=== PATIENT | female | born 1985 | race Caucasian/White ===

== ENCOUNTER 2018-08-13 18:28 | Emergency (ER) | payer MEDICAID ==
--- NOTE | 2018-08-13 18:58 | ER Document Report ---
ED Medical Screen (RME) - General Chief Complaint: Cold Symptoms Stated Complaint: COUGH,HEADACHE Time Seen by Provider: 08/13/18 18:55 Mode of Arrival: Ambulatory Information source: Patient TRAVEL OUTSIDE OF THE [place] IN LAST 30 DAYS: No - HPI Patient complains to provider of: cough, CP with cough Onset: Other - pt with cough productive of green sputum, LIM, and fever for the past few days. - Related Data Allergies/Adverse Reactions: quetiapine [From Seroquel] Allergy (Verified 08/13/18 18:37) Anaphylaxis Physical Exam - Vital signs Vitals: Temp Pulse Resp BP Pulse Ox 100.8 F H 107 H 24 H 141/85 H 95 08/13/18 18:42 08/13/18 18:42 08/13/18 18:42 08/13/18 18:42 08/13/18 18:42 Course - Vital Signs Vital signs: Temp Pulse Resp BP Pulse Ox 100.8 F H 107 H 24 H 141/85 H 95 08/13/18 18:42 08/13/18 18:42 08/13/18 18:42 08/13/18 18:42 08/13/18 18:42
[2018-08-13 19:15] LABS: ABSOLUTE BASOPHILS # (AUTO) 0.1 10^3/uL (0.0-0.2); ABSOLUTE EOSINOPHILS # (AUTO) 0.1 10^3/uL (0.0-0.6); ABSOLUTE LYMPHOCYTES (AUTO) 2.7 10^3/uL (0.5-4.7); ABSOLUTE MONOCYTES (AUTO) 0.6 10^3/uL (0.1-1.4); ABSOLUTE NEUT (AUTO) 7.3 10^3/uL (1.7-8.2); BASOPHILS % (AUTO) 0.5 % (0-2); EOSINOPHILS % (AUTO) 1.3 % (0-6); HEMATOCRIT 35.5 % (36.0-47.0); HEMOGLOBIN 11.8 g/dL (12.0-15.5); LYMPHOCYTES % (AUTO) 25.2 % (13-45); MEAN CORPUSCULAR HEMOGLOBIN 25.6 pg (27.0-33.4); MEAN CORPUSCULAR HGB CONC 33.3 g/dL (32.0-36.0); MEAN CORPUSCULAR VOLUME 77 fl (80-97); MONOCYTES % (AUTO) 5.5 % (3-13); PLATELET COUNT 263 10^3/uL (150-450); RED BLOOD COUNT 4.63 10^6/uL (3.72-5.28); RED CELL DISTRIBUTION WIDTH 16.6 % (11.5-14.0); SEGMENTED NEUTROPHILS % (AUTO) 67.5 % (42-78); TOTAL CELLS COUNTED % (AUTO) 100 %; WHITE BLOOD COUNT 10.9 10^3/uL (4.0-10.5)
--- NOTE | 2018-08-13 19:25 | RADIOLOGY REPORT (SQ) ---
EXAM DESCRIPTION: CHEST 2 VIEWS COMPLETED DATE/TIME: 08/13/2018 7:15 pm REASON FOR STUDY: cough COMPARISON: None. EXAM PARAMETERS: NUMBER OF VIEWS: two views TECHNIQUE: Digital Frontal and Lateral radiographic views of the chest acquired. RADIATION DOSE: NA LIMITATIONS: none FINDINGS: LUNGS AND PLEURA: Streaky density in the left lung base, posterior to the cardiac silhouet te. No pleural effusion. MEDIASTINUM AND HILAR STRUCTURES: No masses or contour abnormalities. HEART AND VASCULAR STRUCTURES: Heart normal size. No evidence for failure. BONES: No acute findings. HARDWARE: None in the chest. OTHER: No other significant finding. IMPRESSION: STREAKY DENSITY IN THE LEFT LUNG BASE, POSSIBLE EARLY INFILTRATE SECONDARY TO PNEUMONIA. TECHNICAL DOCUMENTATION: JOB ID: [id number] [employer]- All Rights Reserved Reading location - IP/workstation name: [email or web address]
[2018-08-13 19:30] LABS: ALANINE AMINOTRANSFERASE 17 U/L (9-52); ALKALINE PHOSPHATASE 103 U/L (38-126); ANION GAP 14 (5-19); ASPARTATE AMINO TRANSFERASE 15 U/L (14-36); BILIRUBIN,DIRECT 0.1 mg/dL (0.0-0.4); BILIRUBIN,TOTAL 0.5 mg/dL (0.2-1.3); BLOOD UREA NITROGEN 10 mg/dL (7-20); CALCIUM 9.1 mg/dL (8.4-10.2); CARBON DIOXIDE 26 mmol/L (22-30); CHLORIDE 100 mmol/L (98-107); CREATINE KINASE 288 U/L (30-135); GLUCOSE 107 mg/dL (75-110); POTASSIUM 4.4 mmol/L (3.6-5.0); SODIUM 139.9 mmol/L (137-145); TOTAL PROTEIN 8.4 g/dL (6.3-8.2)
[2018-08-13 19:48] LABS: CREATINE KINASE MB 0.27 ng/mL (<4.55)
[2018-08-13 19:49] LABS: TROPONIN I < 0.012 ng/mL
[2018-08-13] MEDS ORDERED: DOXYCYCLINE HYCLATE 100 MG TABLET PO ONE (20:44)
[2018-08-13] MEDS ORDERED: ACETAMINOPHEN 325 MG TABLET PO ONE (20:46)
--- NOTE | 2018-08-13 20:47 | ER Document Report ---
ED General - General Chief Complaint: Cold Symptoms Stated Complaint: COUGH,HEADACHE Time Seen by Provider: 08/13/18 18:55 Mode of Arrival: Ambulatory Notes: Patient is a 32-year-old female with a past medical history of morbid obesity, bipolar disorder, who presents with 4 days of cough, sputum production, body aches and fever. Patient reports that her symptoms started gradually and have been worsening over that period of time. Nothing improves or worsens her symptoms. She has not trying to treat her symptoms. She does not have a doctor. She denies any history of similar symptoms in the past. No known sick contacts. She has been nauseated but has not been able to tolerate oral intake. No diarrhea. No history of asthma but does state that she continues to smoke. TRAVEL OUTSIDE OF THE [place] IN LAST 30 DAYS: No - Related Data Allergies/Adverse Reactions: quetiapine [From Seroquel] Allergy (Verified 08/13/18 19:01) Anaphylaxis Past Medical History - General Information source: Patient - Social History Smoking Status: Current Every Day Smoker Chew tobacco use (# tins/day): No Frequency of alcohol use: None Drug Abuse: None Lives with: Spouse/Significant other Family History: Reviewed & Not Pertinent Patient has suicidal ideation: No Patient has homicidal ideation: No Neurological Medical History: Reports: Hx Migraine, Hx Seizures Renal/ Medical History: Denies: Hx Peritoneal Dialysis Psychiatric Medical History: Reports: Hx Bipolar Disorder, Hx Depression Past Surgical History: Reports: Hx Cholecystectomy Review of Systems - Review of Systems Notes: Constitutional: Positive for fever. HENT: Negative for sore throat. Eyes: Negative for visual changes. Cardiovascular: Positive for chest pain. Respiratory: Positive for cough Gastrointestinal: Negative for abdominal pain, vomiting or diarrhea. Genitourinary: Negative for dysuria. Musculoskeletal: Positive for diffuse musculoskeletal pain Skin: Negative for rash. Neurological: Negative for headaches, weakness or numbness. 10 point ROS negative except as marked above and in HPI. Physical Exam - Vital signs Vitals: Temp Pulse Resp BP Pulse Ox 100.8 F H 107 H 24 H 141/85 H 95 08/13/18 18:42 08/13/18 18:42 08/13/18 18:42 08/13/18 18:42 08/13/18 18:42 Interpretation: Tachycardic, Tachypneic, Febrile Notes: PHYSICAL EXAMINATION: GENERAL: Well-appearing, well-nourished and in no acute distress. HEAD: Atraumatic, normocephalic. EYES: Pupils equal round and reactive to light, extraocular movements intact, sclera anicteric, conjunctiva are normal. ENT: nares patent, oropharynx clear without exudates. Moderately dry mucous membranes. NECK: Normal range of motion, supple without lymphadenopathy LUNGS: Limited by body habitus. Slightly diminished at the left base relative to the right. Breath sounds otherwise clear to auscultation bilaterally and equal. No wheezes rales or rhonchi. HEART: Regular rate and rhythm without murmurs ABDOMEN: Soft, nontender, normoactive bowel sounds. No guarding, no rebound. No masses appreciated. EXTREMITIES: Normal range of motion, no pitting or edema. No cyanosis. NEUROLOGICAL: Face symmetric. Tongue protrudes midline. Extraocular motions intact. Pupils are 2 mm and equally reactive. Normal speech, normal gait. 5 out of 5 strength in both the distal and proximal upper and lower extremities bilaterally. Sensation is grossly intact throughout. Finger to nose testing normal. Pronator drift normal. PSYCH: Normal mood, normal affect. SKIN: Warm, Dry, normal turgor, no rashes or lesions noted. Course - Re-evaluation Re-evalutation: 08/13/18 20:43 Patient presents with cough, chest wall discomfort with coughing, body aches and headache. She has also had a fever at home. At time of arrival patient is noted to be mildly febrile 100.8 with moderate associated tachycardia at 107. On exam the patient is well in appearance, morbidly obese but in no acute distress. Lung exam is limited by body habitus although it appears the patient does have some faint crackles at the left base versus the right. Chest x-ray does confirm a left lower lobe infiltrate consistent with an acute pneumonia which would account for the patient's symptoms. Her laboratories are otherwise unremarkable. Her curb 65 score is 0. She is appropriate for outpatient management and follow-up. She has been started on doxycycline. At this time will discharge with return precautions and follow-up recommendations. Verbal discharge instructions given a the bedside and opportunity for questions given. Medication warnings reviewed. Patient is in agreement with this plan and has verbalized understanding of return precautions and the need for primary care follow-up in the next 24-72 hours. - Vital Signs Vital signs: Temp Pulse Resp BP Pulse Ox 99.8 F 96 19 134/73 H 95 08/13/18 21:09 08/13/18 21:09 08/13/18 21:09 08/13/18 21:09 08/13/18 21:09 - Laboratory Result Diagrams: 08/13/18 19:11 08/13/18 19:11 Laboratory results interpreted by me: 08/13/18 08/13/18 19:11 19:11 WBC 10.9 H Hgb 11.8 L Hct 35.5 L MCV 77 L MCH 25.6 L RDW 16.6 H Creatine Kinase 288 H Total Protein 8.4 H - Diagnostic Test Radiology reviewed: Image reviewed, Reports reviewed Radiology results interpreted by me: 08/13/18 20:44 Chest x-ray: Left lower lobe infiltrate - EKG Interpretation by Me Additional EKG results interpreted by me: 08/13/18 20:45 Sinus rhythm. Rate 97. No ST elevations or depressions. QTC is 441. Discharge - Discharge Clinical Impression: Body aches, Chest wall discomfort Left lower lobe pneumonia Qualifiers: Pneumonia type: due to unspecified organism Qualified Code(s): J18.1 - Lobar pneumonia, unspecified organism Headache Qualifiers: Headache type: unspecified Headache chronicity pattern: acute headache Intractability: not intractable Qualified Code(s): R51 - Headache Condition: Good Disposition: HOME, SELF-CARE Additional Instructions: You have been diagnosed with a pneumonia. It is very important that you take all of your antibiotics until they are gone even if you are feeling better. Please return to the emergency department immediately if you began having worsening shortness of breath, become confused, have worsening pain, pass out, have persistent vomiting that prevents you from being able to drink fluids for more than 12 hours, or have any other symptoms that are worrisome to you. Please follow-up with your primary care doctor in the next 1-2 days. Prescriptions: Doxycycline Hyclate 100 mg PO BID #20 capsule
[2018-08-13 21:10] VITALS: BP 134/73
--- NOTE | 2018-08-13 22:02 | EKG REPORT ---
SEVERITY:- NORMAL ECG - SINUS RHYTHM : Confirmed by: Betty Vincent MD 13-Aug-2018 22:01:34
== END 2018-08-13 21:19 | disposition home or self-care (01) ==
LOC: ER 18:28
DX: J18.1 Lobar pneumonia, unspecified organism (principal); R51 Headache; R50.9 Fever, unspecified; R00.0 Tachycardia, unspecified; R11.0 Nausea; F17.200 Nicotine dependence, unspecified, uncomplicated; E66.01 Morbid (severe) obesity due to excess calories
CPT/HCPCS: 93005; 99284; 36415; 82553; 82550; 85025; 80053; 84484; 71046; 93010; J3490 ×2

== ENCOUNTER 2018-11-23 15:24 | Emergency (ER) | payer MEDICAID ==
[2018-11-23] MEDS ORDERED: ONDANSETRON HCL INJ/PF 4 MG/2 ML SDV IV ONE (16:25)
[2018-11-23] MEDS ORDERED: FENTANYL CITRATE INJ/PF 100 MCG/2 ML AMPUL IV ONE (16:25)
[2018-11-23] MEDS ORDERED: FAMOTIDINE INJ/PF 20 MG/2 ML SDV IV ONE (16:25)
[2018-11-23] MEDS ORDERED: KETOROLAC TROMETHAMINE INJ/PF 30 MG/1 ML SDV IV ONE (16:25)
[2018-11-23] MEDS ORDERED: DICYCLOMINE HCL INJ 20 MG/2 ML AMPULE IM ONE (16:26)
--- NOTE | 2018-11-23 16:28 | ER Document Report ---
ED Medical Screen (RME) - General Chief Complaint: Diarrhea Stated Complaint: ABDOMINAL PAIN Time Seen by Provider: 11/23/18 16:22 Notes: Chief complaint: Abdominal pain History of complain:( obtained from----patient) 33 years old female presents today with abdominal pain over the mid abdominal region since this morning. Nonradiating sharp. No associated with nausea no vomiting. Denies any dysuria frequency urgency. Onset: Gradual Duration: Since this morning Severity: Moderate Quality: Crampy and sharp Context: Unknown Exacerbating factor and relieving factors: Unknown PHYSICAL EXAMINATION: GENERAL: Moderate acute distress. Morbid obesity HEAD: Atraumatic, normocephalic. EYES: Pupils equal round and reactive to light, extraocular movements intact, conjunctiva are normal. ENT: Nares patent, oropharynx clear without exudates. Moist mucous membranes. NECK: Normal range of motion, supple without lymphadenopathy LUNGS: Breath sounds clear to auscultation bilaterally and equal. No wheezes rales or rhonchi. HEART: Regular rate and rhythm without murmurs ABDOMEN: Soft, sharp tenderness over the mid abdomen noted, nondistended abdomen. No guarding, no rebound. No masses appreciated. Dictation was performed using [employer] voice recognition software TRAVEL OUTSIDE OF THE [place] IN LAST 30 DAYS: No - Related Data Allergies/Adverse Reactions: quetiapine [From Seroquel] Allergy (Verified 11/23/18 15:26) Anaphylaxis Past Medical History Neurological Medical History: Reports: Hx Migraine, Hx Seizures Renal/ Medical History: Denies: Hx Peritoneal Dialysis Psychiatric Medical History: Reports: Hx Bipolar Disorder, Hx Depression Past Surgical History: Reports: Hx Cholecystectomy Physical Exam - Vital signs Vitals: Temp Pulse Resp BP Pulse Ox 98.5 F 94 15 142/91 H 97 11/23/18 15:39 11/23/18 15:39 11/23/18 15:39 11/23/18 15:39 11/23/18 15:39 Course - Vital Signs Vital signs: Temp Pulse Resp BP Pulse Ox 98.5 F 94 15 142/91 H 97 11/23/18 15:39 11/23/18 15:39 11/23/18 15:39 11/23/18 15:39 11/23/18 15:39
--- NOTE | 2018-11-23 17:02 | RADIOLOGY REPORT (SQ) ---
EXAM DESCRIPTION: ACUTE ABDOMEN SERIES COMPLETED DATE/TIME: 11/23/2018 4:45 pm REASON FOR STUDY: Acute abdominal pain COMPARISON: Two-view chest 08/13/2018 NUMBER OF VIEWS: Three views. TECHNIQUE: Frontal chest, supine abdomen and upright abdomen radiographic images acquired. LIMITATIONS: None. FINDINGS: CHEST: Lungs clear of infiltrates. Cardiac silhouette size, gerson FREE AIR: None. No abnormal gas collections. BOWEL GAS PATTERN: Air-fluid levels in nondistended stomach small bowel and colon, abnormal but nonsp ecific. This could indicate an ileus. CALCIFICATIONS: No suspicious calcifications. HARDWARE: Clips right upper quadrant post cholecystectomy SOFT TISSUES: No gross mass or suggestion of organomegaly. BONES: No acute fracture. No worrisome bone lesions. OTHER: No other significant finding. IMPRESSION: No acute infiltrates Air-fluid levels in nondistended stomach, small bowel, and colon. This could indicate an ileus TECHNICAL DOCUMENTATION: JOB ID: [id number] [employer]- All Rights Reserved Reading location - IP/workstation name: [email or web address]
[2018-11-23 18:12] LABS: ABSOLUTE EOSINOPHILS # (AUTO) 0.2 10^3/uL (0.0-0.6); ABSOLUTE LYMPHOCYTES (AUTO) 3.4 10^3/uL (0.5-4.7); ABSOLUTE MONOCYTES (AUTO) 0.4 10^3/uL (0.1-1.4); BASOPHILS % (AUTO) 0.2 % (0-2); HEMATOCRIT 37.3 % (36.0-47.0); HEMOGLOBIN 11.7 g/dL (12.0-15.5); LYMPHOCYTES % (AUTO) 28.1 % (13-45); MEAN CORPUSCULAR HEMOGLOBIN 22.6 pg (27.0-33.4); MEAN CORPUSCULAR HGB CONC 31.2 g/dL (32.0-36.0); MEAN CORPUSCULAR VOLUME 73 fl (80-97); MONOCYTES % (AUTO) 3.7 % (3-13); PLATELET COUNT 368 10^3/uL (150-450); RED BLOOD COUNT 5.15 10^6/uL (3.72-5.28); RED CELL DISTRIBUTION WIDTH 17.3 % (11.5-14.0); TOTAL CELLS COUNTED % (AUTO) 100 %; WHITE BLOOD COUNT 12.1 10^3/uL (4.0-10.5)
--- NOTE | 2018-11-23 18:44 | ER Document Report ---
ED General - General Chief Complaint: Diarrhea Stated Complaint: ABDOMINAL PAIN Time Seen by Provider: 11/23/18 16:22 Mode of Arrival: Medic Information source: Patient TRAVEL OUTSIDE OF THE [place] IN LAST 30 DAYS: No - HPI Patient complains to provider of: Severe lower abdominal pain with diarrhea and nausea Onset: This morning Onset/Duration: Sudden Quality of pain: Sharp, Stabbing Severity: Severe Pain Level: 5 Associated symptoms: denies: Chills, Fever Exacerbated by: Denies Relieved by: Denies Similar symptoms previously: No Recently seen / treated by doctor: No Notes: 33-year-old female coming in today with left lower quadrant abdominal pain that began suddenly this morning with some nausea and some diarrhea. No fevers or shaking chills. No dysuria or frequency. - Related Data Allergies/Adverse Reactions: quetiapine [From Seroquel] Allergy (Verified 11/23/18 15:26) Anaphylaxis Past Medical History - General Information source: Patient - Social History Smoking Status: Current Every Day Smoker Family History: Reviewed & Not Pertinent Patient has suicidal ideation: No Patient has homicidal ideation: No Neurological Medical History: Reports: Hx Migraine, Hx Seizures Renal/ Medical History: Denies: Hx Peritoneal Dialysis Psychiatric Medical History: Reports: Hx Bipolar Disorder, Hx Depression Past Surgical History: Reports: Hx Cholecystectomy Review of Systems - Review of Systems Notes: Constitutional: No fevers. No chills. EENT: No eye redness. No eye pain. No ear pain. No sore throat. Cardiovascular: No chest pain. No palpitations. Respiratory: No cough. No shortness of breath. No respiratory distress. Gastrointestinal: Lower abdominal pain and diarrhea and nausea Genitourinary: Atraumatic. No lesions. No pain. No discharge. Musculoskeletal: Atraumatic. No swelling. No deformities. Skin: No rash or lesions. Lymphatic: No swollen lymph nodes. Neurologic: No headache. No syncope. Psychiatric: No suicidal or homicidal ideation. Physical Exam - Vital signs Vitals: Temp Pulse Resp BP Pulse Ox 98.5 F 94 15 142/91 H 97 11/23/18 15:39 11/23/18 15:39 11/23/18 15:39 11/23/18 15:39 11/23/18 15:39 - Notes Notes: General: Well-developed, well-nourished. In no acute distress. Non-toxic appearing. She appears uncomfortable but nontoxic Cardiac: Well-perfused. Regular rate and rhythm. No murmurs, rubs, or gallops. Pulmonary: No respiratory distress. No cyanosis. Bilateral lung fiels are clear to auscultation. Abdominal: Obese abdomen. Left lower quadrant tenderness to palpation with mild guarding. No rebound. Bowel sounds are present in all 4 quadrants HEENT: Head is atraumatic. Conjunctivae not reddened. No tearing. PERRL. EOMI. Orbits atraumatic. No periorbital swelling or erythema. Oropharynx is without erythema, swelling, or exudates. Neck: Supple. No adenopathy. No meningismus. Dermatologic: Warm with good turgor. No rash. Atraumatic. Chest: Atraumatic. No chest wall tenderness to palpation. Musculoskeletal: Moves all extremities well. No range of motion deficits. no m uscular or joint tenderness. No paraspinal muscle tenderness. no midline spinal tenderness or step-off. Genitourinary: Examination deferred Neurologic: No gross neurologic deficits. Psychiatric: Normal mood. Course - Re-evaluation Re-evalutation: 11/23/18 18:44 This may just be a viral colitis but given the patient's level of pain, need to check for diverticulitis and atypical appendicitis presentation. Given her very large body habitus and think we should be able to check both of those without getting any contrast on the CT. 11/23/18 19:48 Laboratories reviewed. UA looks like a UTI. Mildly elevated white blood cell count. Negative CAT scan. We will give her some antibiotics for UTI and Bentyl for abdominal cramping and some Zofran for nausea - Vital Signs Vital signs: Temp Pulse Resp BP Pulse Ox 97.8 F 73 18 127/71 H 97 11/23/18 19:05 11/23/18 19:05 11/23/18 19:05 11/23/18 19:05 11/23/18 19:05 - Laboratory Result Diagrams: 11/23/18 17:00 Laboratory results interpreted by me: 11/23/18 11/23/18 17:00 19:09 WBC 12.1 H Hgb 11.7 L MCV 73 L MCH 22.6 L MCHC 31.2 L RDW 17.3 H Urine Protein 100 H Urine Ketones TRACE H Urine Blood MODERATE H Urine Bilirubin MODERATE H Urine Urobilinogen 4.0 H Ur Leukocyte Esterase TRACE H Urine Ascorbic Acid 20 H Discharge - Discharge Clinical Impression: Abdominal cramping, UTI (urinary tract infection) Diarrhea Qualifiers: Diarrhea type: unspecified type Qualified Code(s): R19.7 - Diarrhea, unspecified Condition: Good Disposition: HOME, SELF-CARE Instructions: Urinary Tract Infection ([facility]), Abdominal Pain ([facility]) Prescriptions: Ondansetron [Zofran Odt 4 mg Tablet] 1 tab PO Q6HP PRN #8 tab.rapdis PRN Reason: For Nausea/Vomiting Cephalexin Monohydrate [Keflex 500 mg Capsule] 500 mg PO Q8H 7 Days #21 capsule Dicyclomine HCl [Bentyl 20 mg Tablet] 20 mg PO QIDP PRN #20 tablet PRN Reason: Referrals: [facility] [Provider Group] - Follow up tomorrow
[2018-11-23 19:27] LABS: APPEARANCE,URINE CLOUDY; BILIRUBIN,URINE MODERATE (NEGATIVE); COLOR,URINE AMBER; GLUCOSE, URINE NEGATIVE (NEGATIVE); KETONES,URINE TRACE mg/dL (NEGATIVE); LEUKOCYTE ESTERASE,URINE TRACE (NEGATIVE); NITRITE,URINE NEGATIVE (NEGATIVE); PROTEIN,URINE 100 mg/dL (NEGATIVE); URINE SPECIFIC GRAVITY 1.038
--- NOTE | 2018-11-23 19:30 | RADIOLOGY REPORT (SQ) ---
EXAM DESCRIPTION: CT ABD/PELVIS NO ORAL OR IV COMPLETED DATE/TIME: 11/23/2018 6:57 pm REASON FOR STUDY: low abd pain, n/v COMPARISON: None. TECHNIQUE: CT scan of the abdomen and pelvis performed without intravenous or oral contrast. Images reviewed with lung, soft tissue, and bone windows. Reconstructed coronal and sagittal MPR images revi ewed. All images stored on PACS. All CT scanners at this facility use dose modulation, iterative reconstruction, and/or weight based d osing when appropriate to reduce radiation dose to as low as reasonably achievable (ALARA). [facility]: Dose Right [facility]: CareDose [facility]: Dose Right [facility]: Teradose 4D [facility]: Smart Mayomi RADIATION DOSE: CT Rad equipment meets quality standard of care and radiation dose reduction techniq ues were employed. CTDIvol: 21.1 mGy. DLP: 1251 mGy-cm.mGy. LIMITATIONS: None. FINDINGS: LOWER CHEST: No significant findings. No nodules or infiltrates. NON-CONTRASTED LIVER, SPLEEN, ADRENALS: Evaluation limited by lack of IV contrast. No identified sign ificant masses. PANCREAS: No masses. No peripancreatic inflammatory changes. GALLBLADDER: Surgically absent. RIGHT KIDNEY AND URETER: No suspicious masses. Assessment limited by lack of IV contrast. No signif icant calcifications. No hydronephrosis or hydroureter. LEFT KIDNEY AND URETER: No suspicious masses. Assessment limited by lack of IV contrast. No signifi cant calcifications. No hydronephrosis or hydroureter. AORTA AND RETROPERITONEUM: No aneurysm. No retroperitoneal masses or adenopathy. BOWEL AND PERITONEAL CAVITY: No obvious masses or inflammatory changes. There are several small node s in the right lower quadrant. APPENDIX: Normal. PELVIS, BLADDER, AND ABDOMINAL WALL:Urinary bladder is not evaluated. The bladder is not filled. No abnormal pelvic mass or fluid collection. BONES: No significant findings. OTHER: No other significant finding. IMPRESSION: The study is essentially normal. There are some small mesenteric nodes in the right low er quadrant. Correlate for mesenteric adenitis. COMMENT: Quality ID # [id number]: Final reports with documentation of one or more dose reduction techniques (e.g., Automated exposure control, adjustment of the mA and/or kV according to patient size, use of iterative reconstruction technique) TECHNICAL DOCUMENTATION: JOB ID: [id number]- All Rights Reserved Reading location - IP/workstation name: [email or web address]
[2018-11-23 20:16] VITALS: BP 138/65
== END 2018-11-23 20:18 | disposition home or self-care (01) ==
LOC: ER 15:24
DX: N39.0 Urinary tract infection, site not specified (principal); R19.7 Diarrhea, unspecified; R10.9 Unspecified abdominal pain; R10.32 Left lower quadrant pain; R11.0 Nausea; F17.200 Nicotine dependence, unspecified, uncomplicated
CPT/HCPCS: 99284; 96374; 96375; 36415; 83690; 85025; 81025; 81001; 74022; 74176; J0500; J3010; J1885; J2405; S0028

== ENCOUNTER 2019-03-15 05:14 | Emergency (ER) | payer MEDICAID ==
[2019-03-15] MEDS ORDERED: DIPHENHYDRAMINE HCL 50 MG/ML VIAL IV ONE (08:05)
[2019-03-15] MEDS ORDERED: PROCHLORPERAZINE EDISYLATE INJ 10 MG/2 ML VIAL IV ONE (08:06)
--- NOTE | 2019-03-15 08:25 | ER Document Report ---
Entered by MAYKEL HERNANDEZ SCRIBE 03/15/19 0819 Acting as scribe for:VIKAS VILLALOBOS MD ED General - General Chief Complaint: Head Injury Stated Complaint: HEADACHE, DIZZINESS Time Seen by Provider: 03/15/19 07:59 Mode of Arrival: Ambulatory Information source: Patient Notes: Patient is a 33 year old female with migraines, a seizure disorder, depression presents to the emergency department complaining of a headache, lightheadedness and dizziness secondary a mechanical trip and fall. Patient states her right foot went through a weak spot in her floor and she proceeded to fall forward and hit her right roman catholic. Patient states shortly afterwards, she developed a burning sensation that progressed to an extreme pressure described as "my head is going to explode", over her right roman catholic whenever she sits up or stands up. She states the pain is relieved when laying down, particularly on her right side. Patient states her LMP was 1 month ago and reports her period is a little late further stating she could possibly be . TRAVEL OUTSIDE OF THE [place] IN LAST 30 DAYS: No - Related Data Allergies/Adverse Reactions: quetiapine [From Seroquel] Allergy (Verified 11/23/18 15:26) Anaphylaxis Past Medical History - General Information source: Patient - Social History Smoking Status: Current Every Day Smoker Cigarette use (# per day): Yes Chew tobacco use (# tins/day): No Smoking Education Provided: No Frequency of alcohol use: None Lives with: Family Family History: Reviewed & Not Pertinent Neurological Medical History: Reports: Hx Migraine, Hx Seizures Psychiatric Medical History: Reports: Hx Bipolar Disorder, Hx Depression Past Surgical History: Reports: Hx Cholecystectomy Review of Systems - Review of Systems Constitutional: No symptoms reported EENT: No symptoms reported Cardiovascular: See HPI, Dizziness, Lightheaded Respiratory: No symptoms reported Gastrointestinal: No symptoms reported Genitourinary: No symptoms reported Female Genitourinary: No symptoms reported Musculoskeletal: No symptoms reported Skin: No symptoms reported Hematologic/Lymphatic: No symptoms reported Neurological/Psychological: See HPI, Headaches -: Yes All other systems reviewed and negative Physical Exam - Vital signs Vitals: Temp Pulse Resp BP Pulse Ox 98.6 F 92 20 150/78 H 96 03/15/19 05:18 03/15/19 05:18 03/15/19 05:18 03/15/19 05:18 03/15/19 05:18 - Notes Notes: GENERAL: Alert, interacts well. No acute distress. HEAD: Normocephalic, atraumatic. To palpate the right roman catholic. No step-offs or deformities. EYES: Pupils equal, round, and reactive to light. Extraocular movements intact. No lateral gaze nystagmus. ENT: Oral mucosa moist, tongue midline. NECK: Full range of motion. Supple. Trachea midline. LUNGS: Clear to auscultation bilaterally, no wheezes, rales, or rhonchi. No respiratory distress. HEART: Regular rate and rhythm. No murmurs, gallops, or rubs. ABDOMEN: Soft, morbidly obese, non-tender. Non-distended. Bowel sounds present in all 4 quadrants. No guarding, rigidity, or rebound. EXTREMITIES: Moves all 4 extremities spontaneously. NEUROLOGICAL: Alert and oriented x3. Normal speech. PSYCH: Normal affect, normal mood. SKIN: Warm, dry, normal turgor. Course - Re-evaluation Re-evalutation: 03/15/19 09:44 Patient was awakened from a sleep by shaking her good bit. She states her headache is much better and she feels well at this time. CT scan is negative. She will be discharged home with precaution instructions and headache instructions. - Vital Signs Vital signs: Temp Pulse Resp BP Pulse Ox 97.9 F 75 16 135/69 H 95 03/15/19 10:05 03/15/19 10:05 03/15/19 10:05 03/15/19 10:05 03/15/19 10:05 - Diagnostic Test Radiology reviewed: Image reviewed, Reports reviewed Discharge - Discharge Clinical Impression: Right temporal frontal scalp contusions Qualifiers: Encounter type: initial encounter Qualified Code(s): S00.03XA - Contusion of scalp, initial encounter Headache Qualifiers: Headache type: post-traumatic Headache chronicity pattern: acute headache Intractability: not intractable Qualified Code(s): G44.319 - Acute post- traumatic headache, not intractable Condition: Stable Disposition: HOME, SELF-CARE Additional Instructions: Head Injury Precautions At this point, there is no evidence that your head injury is serious. Observation is necessary, however. Take only clear liquids for the first few hours, unless told otherwise by the doctor. If no pain medication was prescribed, you may take acetaminophen according to the directions on the bottle. Do not take any medication that may alter your level of alertness (unless you've discussed it with the doctor first). Limit activity for the first 24 hours. Bed rest is best. During the first 24 hours, check to see approximately every two to three hours that the patient is easily arousable, responds normally, and can perform common tasks such as walking without difficulty. Contact your doctor or go to the hospital if any of the following things occur: Persistent vomiting, difficulty in arousing the patient, worsening or continued headache, or failure to improve as expected. Head injuries can cause symptoms that persist for a few days or even a few weeks. Contusion Your injury has resulted in a contusion -- a crushing of the deep tissues. No injury to important structures was detected during the physician's exam. Contusions vary in the amount of pain they cause, and in the length of time required for healing. Typically, the area will become bruised, and will remain painful to touch for two or three weeks. However, most patients are back to working and playing within a few days. After the initial period of rest and cold-packs, your symptoms (together with the doctor's recommendations) will determine how rapidly you can get back to full activity. Usually this means "do what feels okay, but don't do things that hurt." If re-examination was recommended, it's important to follow up as fam d. Call the doctor or return any time if pain increases, if swelling becomes severe, if you develop numbness or weakness in an injured extremity, or if any other alarming symptoms occur. RETURN TO THE EMERGENCY ROOM IF ANY NEW OR WORSENING SYMPTOMS. [employer] Attestation: 03/15/19 09:16 I personally performed the services described in the documentation, reviewed and edited the documentation which was dictated to the scribe in my presence, and it accurately records my words and actions. I personally performed the services described in the documentation, reviewed and edited the documentation which was dictated to the scribe in my presence, and it accurately records my words and actions.
--- NOTE | 2019-03-15 08:41 | RADIOLOGY REPORT (SQ) ---
EXAM DESCRIPTION: CT HEAD WITHOUT COMPLETED DATE/TIME: 03/15/2019 8:30 am REASON FOR STUDY: Fall, hit right temporal head, dizzy with headache COMPARISON: None. TECHNIQUE: Axial images acquired through the brain without intravenous contrast. Images reviewed wi th bone, brain and subdural windows. Additional sagittal and coronal reconstructions were generated. Images stored on PACS. All CT scanners at this facility use dose modulation, iterative reconstruction, and/or weight based d osing when appropriate to reduce radiation dose to as low as reasonably achievable (ALARA). [facility]: Dose Right [facility]: CareDose [facility]: Dose Right [facility]: Teradose 4D [facility]: Activaero RADIATION DOSE: CT Rad equipment meets quality standard of care and radiation dose reduction techniq ues were employed. CTDIvol: 48.6 mGy. DLP: 954 mGy-cm. mGy. LIMITATIONS: None. FINDINGS: VENTRICLES: Normal size and contour. CEREBRUM: No masses. No hemorrhage. No midline shift. No evidence for acute infarction. Normal gra y/white matter differentiation. No areas of low density in the white matter. CEREBELLUM: No masses. No hemorrhage. No alteration of density. No evidence for acute infarction. EXTRAAXIAL SPACES: No fluid collections. No masses. ORBITS AND GLOBE: No intra- or extraconal masses. Normal contour of globe without masses. CALVARIUM: No fracture. PARANASAL SINUSES: No fluid or mucosal thickening. SOFT TISSUES: No mass or hematoma. OTHER: No other significant finding. IMPRESSION: No acute intracranial pathology. EVIDENCE OF ACUTE STROKE: NO. COMMENT: Quality ID # [id number]: Final reports with documentation of one or more dose reduction techniques (e.g., Automated exposure control, adjustment of the mA and/or kV according to patient size, use of iterative reconstruction technique) TECHNICAL DOCUMENTATION: JOB ID: [id number] [employer]- All Rights Reserved Reading location - IP/workstation name: [email or web address]
[2019-03-15 10:09] VITALS: BP 135/69
== END 2019-03-15 10:35 | disposition home or self-care (01) ==
LOC: ER 05:14
DX: S00.03XA Contusion of scalp, initial encounter (principal); R42 Dizziness and giddiness; G44.319 Acute post-traumatic headache, not intractable; W19.XXXA Unspecified fall, initial encounter; W22.03XA Walked into furniture, initial encounter; F17.210 Nicotine dependence, cigarettes, uncomplicated; Z87.892 Personal history of anaphylaxis; Z88.8 Allergy status to other drugs, medicaments and biological substances
CPT/HCPCS: 99284; 96374; 96375; 70450; J1200; J0780

== ENCOUNTER 2019-08-11 14:36 | Emergency (ER) | payer MEDICAID ==
--- NOTE | 2019-08-11 15:19 | ER Document Report ---
ED Medical Screen (RME) - General Chief Complaint: Back Pain Stated Complaint: BACK PAIN Time Seen by Provider: 08/11/19 15:16 Mode of Arrival: Ambulatory Information source: Patient Notes: 33-year-old female presents to ED for complaint of low back pain. She states she has not had a menstrual cycle since June through the . She states her pain is a 4/5 and sharp. Denies nausea and vomiting. She states she has had this pain in the back before when she had kids. Patient smokes 5 or 6 cigarettes a day, rarely drinks alcohol, denies use of illicit drugs. History of seizures but none in quite a few years, bipolar, and anxiety. I have greeted and performed a rapid initial assessment of this patient. A comprehensive ED assessment and evaluation of the patient, analysis of test results and completion of medical decision making process will be conducted by an additional ED providers. TRAVEL OUTSIDE OF THE [place] IN LAST 30 DAYS: No - Related Data Allergies/Adverse Reactions: quetiapine [From Seroquel] Allergy (Verified 11/23/18 15:26) Anaphylaxis Past Medical History Neurological Medical History: Reports: Hx Migraine, Hx Seizures Renal/ Medical History: Denies: Hx Peritoneal Dialysis Psychiatric Medical History: Reports: Hx Bipolar Disorder, Hx Depression Past Surgical History: Reports: Hx Cholecystectomy Physical Exam - Vital signs Vitals: Temp Pulse Resp BP Pulse Ox 98 F 90 16 166/86 H 99 08/11/19 14:41 08/11/19 14:41 08/11/19 14:41 08/11/19 14:41 08/11/19 14:41 Course - Vital Signs Vital signs: Temp Pulse Resp BP Pulse Ox 98 F 90 16 166/86 H 99 08/11/19 14:41 08/11/19 14:41 08/11/19 14:41 08/11/19 14:41 08/11/19 14:41
[2019-08-11 17:34] LABS: APPEARANCE,URINE SLIGHTLY-CLOUDY; BILIRUBIN,URINE NEGATIVE (NEGATIVE); COLOR,URINE YELLOW; GLUCOSE, URINE NEGATIVE (NEGATIVE); KETONES,URINE NEGATIVE (NEGATIVE); PROTEIN,URINE NEGATIVE (NEGATIVE); URINE SPECIFIC GRAVITY 1.029; UROBILINOGEN,URINE NEGATIVE mg/dL (<2.0)
--- NOTE | 2019-08-11 17:50 | ER Document Report ---
ED General Pain - General Chief Complaint: Low Back Pain Stated Complaint: BACK PAIN Time Seen by Provider: 08/11/19 15:16 Primary Care Provider: CHELSEA WORKMAN PA-C [Primary Care Provider] - Follow up as needed Mode of Arrival: Ambulatory Information source: Patient, Relative TRAVEL OUTSIDE OF THE [place] IN LAST 30 DAYS: No - HPI Onset: Other - Pt. with 2-3 day h/o L-sided LBP. She states she hasn't had a normal menstrual cycle since early June and feels she may be . - Related Data Allergies/Adverse Reactions: quetiapine [From Seroquel] Allergy (Verified 11/23/18 15:26) Anaphylaxis Past Medical History - General Information source: Patient - Social History Smoking Status: Current Every Day Smoker Chew tobacco use (# tins/day): No Frequency of alcohol use: Occasional Drug Abuse: None Family History: Reviewed & Not Pertinent Patient has suicidal ideation: No Patient has homicidal ideation: No Neurological Medical History: Reports: Hx Migraine, Hx Seizures Renal/ Medical History: Denies: Hx Peritoneal Dialysis Psychiatric Medical History: Reports: Hx Bipolar Disorder, Hx Depression Past Surgical History: Reports: Hx Cholecystectomy Review of Systems - Review of Systems Constitutional: No symptoms reported EENT: No symptoms reported Cardiovascular: No symptoms reported Respiratory: No symptoms reported Gastrointestinal: No symptoms reported Musculoskeletal: See HPI, Back pain Neurological/Psychological: No symptoms reported -: Yes All other systems reviewed and negative Physical Exam - Vital signs Vitals: Temp Pulse Resp BP Pulse Ox 98 F 90 16 166/86 H 99 08/11/19 14:41 08/11/19 14:41 08/11/19 14:41 08/11/19 14:41 08/11/19 14:41 - General General appearance: Appears well In distress: None - pt is morbidly obese - Respiratory Respiratory status: No respiratory distress Breath sounds: Normal - Cardiovascular Rhythm: Regular Heart sounds: Normal auscultation Murmur: No - Back Back: Tender - min TTP of the L lumbar area with some paraspinal spasm. Neg SLR; N/V intact - Extremities General upper extremity: Normal inspection General lower extremity: Normal inspection Course - Vital Signs Vital signs: Temp Pulse Resp BP Pulse Ox 98 F 90 16 166/86 H 99 08/11/19 14:41 08/11/19 14:41 08/11/19 14:41 08/11/19 14:41 08/11/19 14:41 - Laboratory Laboratory results interpreted by me: 08/11/19 16:57 Leukocyte Esterase Rfl SMALL H Discharge - Discharge Clinical Impression: UTI (urinary tract infection) Qualifiers: Urinary tract infection type: acute cystitis Hematuria presence: without hematuria Qualified Code(s): N30.00 - Acute cystitis without hematuria Condition: Stable Disposition: HOME, SELF-CARE Instructions: Urinary Tract Infection ([facility]), Low Back Pain ([facility]), Trimethoprim- Sulfa ([facility]) Additional Instructions: rest, take meds as prescribed, return if worse Prescriptions: Sulfamethoxazole/Trimethoprim [Bactrim Ds Tablet] 1 each PO BID #10 tablet Referrals: CHELSEA WORKMAN PA-C [Primary Care Provider] - Follow up as needed
[2019-08-11 19:07] VITALS: BP 124/58
== END 2019-08-11 19:08 | disposition home or self-care (01) ==
LOC: ER 14:36
DX: N30.00 Acute cystitis without hematuria (principal); M54.5 Low back pain; F17.200 Nicotine dependence, unspecified, uncomplicated; R25.2 Cramp and spasm; Z87.892 Personal history of anaphylaxis; Z88.8 Allergy status to other drugs, medicaments and biological substances
CPT/HCPCS: 81001; 81025; 87086; 99283

== ENCOUNTER 2019-09-11 16:03 | Emergency (ER) | payer MEDICAID ==
[2019-09-11] MEDS ORDERED: ONDANSETRON HCL INJ/PF 4 MG/2 ML SDV IV ONE (16:58)
[2019-09-11] MEDS ORDERED: NORMAL SALINE 1000 ML 1,000 ML IV ONE (16:58)
--- NOTE | 2019-09-11 17:01 | ER Document Report ---
ED Medical Screen (RME) - General Chief Complaint: Abdominal Pain Stated Complaint: ABDOMINAL PAIN Time Seen by Provider: 09/11/19 16:56 Primary Care Provider: CHELSEA WORKMAN PA-C [Primary Care Provider] - Follow up as needed Mode of Arrival: Ambulatory Information source: Patient Notes: Patient presents complaining of periumbilical abdominal pain that radiates arou nd to right side. Patient reports nausea vomiting and diarrhea. Patient reports vomiting only twice today but having numerous episodes of diarrhea. No fever. No urinary symptoms. Patient has had a history of a cholecystectomy in the past. I have greeted and performed a rapid initial assessment of this patient. A comprehensive ED assessment and evaluation of the patient, analysis of test res ults and completion of the medical decision making process will be conducted by additional ED providers. TRAVEL OUTSIDE OF THE [place] IN LAST 30 DAYS: No - Related Data Allergies/Adverse Reactions: quetiapine [From Seroquel] Allergy (Verified 11/23/18 15:26) Anaphylaxis Past Medical History Neurological Medical History: Reports: Hx Migraine, Hx Seizures Renal/ Medical History: Denies: Hx Peritoneal Dialysis Psychiatric Medical History: Reports: Hx Bipolar Disorder, Hx Depression Past Surgical History: Reports: Hx Cholecystectomy Physical Exam - Vital signs Vitals: Temp Pulse Resp BP Pulse Ox 98.6 F 84 20 137/84 H 97 09/11/19 16:41 09/11/19 16:41 09/11/19 16:41 09/11/19 16:41 09/11/19 16:41 - Abdominal Inspection: Morbidly Obese Notes: Periumbilical tenderness that radiates to right lateral side Course - Vital Signs Vital signs: Temp Pulse Resp BP Pulse Ox 98.6 F 84 20 137/84 H 97 09/11/19 16:41 09/11/19 16:41 09/11/19 16:41 09/11/19 16:41 09/11/19 16:41 Doctor's Discharge - Discharge Referrals: CHELSEA WORKMAN PA-C [Primary Care Provider] - Follow up as needed
[2019-09-11 17:29] LABS: ABSOLUTE EOSINOPHILS # (AUTO) 0.2 10^3/uL (0.0-0.6); ABSOLUTE LYMPHOCYTES (AUTO) 2.9 10^3/uL (0.5-4.7); ABSOLUTE MONOCYTES (AUTO) 0.6 10^3/uL (0.1-1.4); ABSOLUTE NEUT (AUTO) 8.7 10^3/uL (1.7-8.2); BASOPHILS % (AUTO) 0.4 % (0-2); EOSINOPHILS % (AUTO) 1.9 % (0-6); HEMATOCRIT 38.9 % (36.0-47.0); HEMOGLOBIN 12.3 g/dL (12.0-15.5); LYMPHOCYTES % (AUTO) 23.6 % (13-45); MEAN CORPUSCULAR HEMOGLOBIN 22.6 pg (27.0-33.4); MEAN CORPUSCULAR HGB CONC 31.8 g/dL (32.0-36.0); MEAN CORPUSCULAR VOLUME 71 fl (80-97); MONOCYTES % (AUTO) 4.6 % (3-13); PLATELET COUNT 358 10^3/uL (150-450); RED BLOOD COUNT 5.46 10^6/uL (3.72-5.28); RED CELL DISTRIBUTION WIDTH 17.9 % (11.5-14.0); SEGMENTED NEUTROPHILS % (AUTO) 69.5 % (42-78); TOTAL CELLS COUNTED % (AUTO) 100 %; WHITE BLOOD COUNT 12.4 10^3/uL (4.0-10.5)
--- NOTE | 2019-09-11 17:52 | ER Document Report ---
ED General - General Chief Complaint: Abdominal Pain Stated Complaint: ABDOMINAL PAIN Time Seen by Provider: 09/11/19 16:56 Primary Care Provider: CHELSEA WORKMAN PA-C [Primary Care Provider] - Follow up as needed Mode of Arrival: Ambulatory TRAVEL OUTSIDE OF THE [place] IN LAST 30 DAYS: No - HPI Notes: Patient is a 33-year-old female with a history of bipolar disorder presents emergency department for evaluation of abdominal pain, vomiting, diarrhea. She states her pain is on the right side. She states she woke with pain this morning, had 2-3 episodes of nonbloody, nonbilious emesis, and at least 10 episodes of watery diarrhea. She states she does not know if she had a oli fever, but states she had a hot and cold chills for the last 2 days. She is complained of some body aches. She denies any coughing. No recent antibiotic therapy or abnormal travel. - Related Data Allergies/Adverse Reactions: quetiapine [From [employer]] Allergy (Verified 11/23/18 15:26) Anaphylaxis Home Medications: None Past Medical History - General Information source: Patient - Social History Smoking Status: Current Every Day Smoker Family History: Reviewed & Not Pertinent Patient has suicidal ideation: No Patient has homicidal ideation: No Neurological Medical History: Reports: Hx Migraine, Hx Seizures - No seizures since 2010 Renal/ Medical History: Denies: Hx Peritoneal Dialysis Psychiatric Medical History: Reports: Hx Bipolar Disorder, Hx Depression Past Surgical History: Reports: Hx Cholecystectomy Review of Systems - Review of Systems Constitutional: See HPI EENT: No symptoms reported Cardiovascular: No symptoms reported Respiratory: No symptoms reported Gastrointestinal: See HPI Genitourinary: No symptoms reported Female Genitourinary: No symptoms reported Musculoskeletal: No symptoms reported Skin: No symptoms reported Neurological/Psychological: No symptoms reported Physical Exam - Vital signs Vitals: Temp Pulse Resp BP Pulse Ox 98.6 F 84 20 137/84 H 97 09/11/19 16:41 09/11/19 16:41 09/11/19 16:41 09/11/19 16:41 09/11/19 16:41 - Notes Notes: This is an obese 33-year-old female who appears her stated age in no acute distress. Vital signs reviewed, please refer to chart. Head is normocephalic, atraumatic. Pupils equal round, reactive to light. Neck is supple without meningismus. Heart is regular rate and rhythm. Lungs are clear to auscultation bilaterally. Abdomen is obese, moderately tender in the right upper quadrant without rebound or guarding, normoactive bowel sounds throughout. Extremities without cyanosis, clubbing. Posterior calves are nontender. Peripheral pulses are equal. Skin is warm and dry. Patient is awake, alert, neurological exam is nonfocal. Course - Re-evaluation Re-evalutation: 09/11/19 17:52 Patient presents emergency department for evaluation of less than 12 hours of nausea, vomiting, diarrhea. Her abdomen is tender but nonsurgical. She is g iven IV fluids, nausea medication. Given her reports of aches and chills for the last several days, as well as vomiting and diarrhea, I strongly suspect a viral etiology of her symptomatology at this time. Patient is given IV fluids, awaiting urine sample, we will continue to monitor. 09/11/19 20:26 Patient feeling improved. Her urinalysis feels reveal any significant abnormalities. Serial abdominal exams are mildly tender, more globally actually, but are definitely nonsurgical. She does have a very mild leukocytosis. Again I suspect a viral etiology. Patient will be sent home with some nausea medication. She is told to stick to clear liquids, advance to bland diet as tolerated. She is told to avoid antidiarrheal medications if possible. If her pain persists or worsens in the next 12 hours, she should be brought in for further evaluation and she voiced understanding. She otherwise is to follow-up with primary care next week. 09/11/19 20:26 - Vital Signs Vital signs: Temp Pulse Resp BP Pulse Ox 98.6 F 84 20 137/84 H 97 09/11/19 16:41 09/11/19 16:41 09/11/19 16:41 09/11/19 16:41 09/11/19 16:41 - Laboratory Result Diagrams: 09/11/19 17:11 09/11/19 17:11 Laboratory results interpreted by me: 09/11/19 09/11/19 09/11/19 17:11 17:11 18:58 WBC 12.4 H RBC 5.46 H MCV 71 L MCH 22.6 L MCHC 31.8 L RDW 17.9 H Absolute Neuts (auto) 8.7 H Carbon Dioxide 21 L Ur Leukocyte Esterase SMALL H Discharge - Discharge Clinical Impression: Nausea vomiting and diarrhea, Right upper quadrant abdominal pain Condition: Stable Disposition: HOME, SELF-CARE Instructions: Abdominal Pain ([facility]), Antinausea Medication ([facility]), Vomiting ([facility]), Diarrhea, Nonspecific ([facility]) Additional Instructions: Stay hydrated with small, frequent sips of fluids. Follow-up with primary care next week. If your pain persists in 12 to 24 hours, or certainly if it worsens in the meantime, please return immediately to the emergency department for evalu ation. Otherwise, follow-up with primary care next week. Forms: Return to Work Referrals: CHELSEA WORKMAN PA-C [Primary Care Provider] - Follow up as needed
[2019-09-11 17:59] LABS: ALBUMIN 4.1 g/dL (3.5-5.0); ALKALINE PHOSPHATASE 104 U/L (38-126); ANION GAP 12 (5-19); ASPARTATE AMINO TRANSFERASE 16 U/L (14-36); BILIRUBIN,DIRECT 0.1 mg/dL (0.0-0.4); BILIRUBIN,TOTAL 0.4 mg/dL (0.2-1.3); BLOOD UREA NITROGEN 13 mg/dL (7-20); CALCIUM 9.4 mg/dL (8.4-10.2); CARBON DIOXIDE 21 mmol/L (22-30); CHLORIDE 106 mmol/L (98-107); GLUCOSE 99 mg/dL (75-110); POTASSIUM 4.8 mmol/L (3.6-5.0); TOTAL PROTEIN 8.2 g/dL (6.3-8.2)
[2019-09-11 19:22] LABS: APPEARANCE,URINE SLIGHTLY-CLOUDY; BILIRUBIN,URINE NEGATIVE (NEGATIVE); COLOR,URINE YELLOW; GLUCOSE, URINE NEGATIVE (NEGATIVE); KETONES,URINE NEGATIVE (NEGATIVE); LEUKOCYTE ESTERASE,URINE SMALL (NEGATIVE); NITRITE,URINE NEGATIVE (NEGATIVE); PROTEIN,URINE NEGATIVE (NEGATIVE); URINE SPECIFIC GRAVITY 1.027; UROBILINOGEN,URINE NEGATIVE mg/dL (<2.0)
[2019-09-11] MEDS ORDERED: ONDANSETRON ODT 4 MG TAB (6 TAB/ER DISP) PO PRN (20:25)
[2019-09-11 20:28] VITALS: BP 137/63
== END 2019-09-11 20:33 | disposition home or self-care (01) ==
LOC: ER 16:03
DX: R11.2 Nausea with vomiting, unspecified (principal); R10.11 Right upper quadrant pain; R19.7 Diarrhea, unspecified; M79.10 Myalgia, unspecified site; F17.200 Nicotine dependence, unspecified, uncomplicated
CPT/HCPCS: 99284; 96361; 96374; 36415; 83690; 84703; 85025; 80053; 81001; J2405; J7030

== ENCOUNTER 2019-11-02 16:35 | Emergency (ER) | payer MEDICAID ==
--- NOTE | 2019-11-02 18:05 | ER Document Report ---
ED Medical Screen (RME) - General Chief Complaint: Dizziness Stated Complaint: POSSIBLE BLURRY VISION Time Seen by Provider: 11/02/19 17:34 Primary Care Provider: CHELSEA WORKMAN PA-C [Primary Care Provider] - Follow up as needed Mode of Arrival: Ambulatory Information source: Patient Notes: PATIENT WITH C/O BEING 9 WEEKS AND HAVING DIZZINESS OVER THE LAST THREE DAYS. DENIES ANY CHEST PAIN, NAUSEA. Exam: Patient alert, oriented, answering all questions appropriately, no focal neurological deficits noted. I have greeted and performed a rapid initial assessment of this patient. A comprehensive ED assessment and evaluation of the patient, analysis of test results and completion of the medical decision making process will be conducted by additional ED providers. I have specifically instructed the patient or family members with the patient to immediately return to any nursing staff should anything change in the patient's condition or with their chief complaint. TRAVEL OUTSIDE OF THE [place] IN LAST 30 DAYS: No - Related Data Allergies/Adverse Reactions: crab Allergy (Verified 11/02/19 17:34) quetiapine [From Seroquel] Allergy (Verified 11/02/19 17:34) Anaphylaxis Home Medications: vitamin Past Medical History - Social History Chew tobacco use (# tins/day): No Frequency of alcohol use: None Drug Abuse: None Neurological Medical History: Reports: Hx Migraine, Hx Seizures - No seizures since 2010 Renal/ Medical History: Denies: Hx Peritoneal Dialysis Psychiatric Medical History: Reports: Hx Bipolar Disorder, Hx Depression Past Surgical History: Reports: Hx Cholecystectomy Physical Exam - Vital signs Vitals: Temp Pulse Resp BP Pulse Ox 98.6 F 84 16 148/84 H 97 11/02/19 16:52 11/02/19 16:52 11/02/19 16:52 11/02/19 16:52 11/02/19 16:52 Course - Vital Signs Vital signs: Temp Pulse Resp BP Pulse Ox 98.6 F 84 16 148/84 H 97 11/02/19 16:52 11/02/19 16:52 11/02/19 16:52 11/02/19 16:52 11/02/19 16:52 Doctor's Discharge - Discharge Referrals: CHELSEA WORKMAN PA-C [Primary Care Provider] - Follow up as needed
[2019-11-02 19:03] LABS: ABSOLUTE EOSINOPHILS # (AUTO) 0.1 10^3/uL (0.0-0.6); ABSOLUTE LYMPHOCYTES (AUTO) 2.9 10^3/uL (0.5-4.7); ABSOLUTE MONOCYTES (AUTO) 0.4 10^3/uL (0.1-1.4); ABSOLUTE NEUT (AUTO) 6.2 10^3/uL (1.7-8.2); BASOPHILS % (AUTO) 0.3 % (0-2); EOSINOPHILS % (AUTO) 1.5 % (0-6); HEMATOCRIT 34.7 % (36.0-47.0); HEMOGLOBIN 11.1 g/dL (12.0-15.5); LYMPHOCYTES % (AUTO) 29.9 % (13-45); MEAN CORPUSCULAR HEMOGLOBIN 22.8 pg (27.0-33.4); MEAN CORPUSCULAR HGB CONC 32.2 g/dL (32.0-36.0); MEAN CORPUSCULAR VOLUME 71 fl (80-97); MONOCYTES % (AUTO) 4.4 % (3-13); PLATELET COUNT 240 10^3/uL (150-450); RED BLOOD COUNT 4.88 10^6/uL (3.72-5.28); RED CELL DISTRIBUTION WIDTH 19.2 % (11.5-14.0); SEGMENTED NEUTROPHILS % (AUTO) 63.9 % (42-78); TOTAL CELLS COUNTED % (AUTO) 100 %; WHITE BLOOD COUNT 9.7 10^3/uL (4.0-10.5)
[2019-11-02 19:11] LABS: APPEARANCE,URINE CLOUDY; BILIRUBIN,URINE NEGATIVE (NEGATIVE); COLOR,URINE YELLOW; GLUCOSE, URINE NEGATIVE (NEGATIVE); KETONES,URINE TRACE mg/dL (NEGATIVE); LEUKOCYTE ESTERASE,URINE MODERATE (NEGATIVE); NITRITE,URINE NEGATIVE (NEGATIVE); PROTEIN,URINE 30 mg/dL (NEGATIVE); URINE SPECIFIC GRAVITY 1.034; UROBILINOGEN,URINE NEGATIVE mg/dL (<2.0)
[2019-11-02 19:18] LABS: ALBUMIN 3.7 g/dL (3.5-5.0); ALKALINE PHOSPHATASE 91 U/L (38-126); ANION GAP 11 (5-19); ASPARTATE AMINO TRANSFERASE 13 U/L (14-36); BILIRUBIN,DIRECT 0.2 mg/dL (0.0-0.4); BILIRUBIN,TOTAL 0.2 mg/dL (0.2-1.3); BLOOD UREA NITROGEN 11 mg/dL (7-20); CALCIUM 9.5 mg/dL (8.4-10.2); CARBON DIOXIDE 23 mmol/L (22-30); CHLORIDE 102 mmol/L (98-107); GLUCOSE 92 mg/dL (75-110); TOTAL PROTEIN 7.6 g/dL (6.3-8.2)
[2019-11-02 22:00] VITALS: BP 116/50
--- NOTE | 2019-11-02 22:32 | ER Document Report ---
ED General - General Chief Complaint: Dizziness Stated Complaint: POSSIBLE BLURRY VISION Time Seen by Provider: 11/02/19 17:34 Primary Care Provider: CHELSEA WORKMAN PA-C [Primary Care Provider] - Follow up as needed Mode of Arrival: Ambulatory TRAVEL OUTSIDE OF THE [place] IN LAST 30 DAYS: No - HPI Notes: 33-year-old female 5 para 4 8 weeks EGA being followed by the health department with a chief complaint of mild blurred vision, dull headache and some general malaise. No fever, chills, vomiting or dysuria. She has had some mild nausea which she attributes to her . No focal neurologic symptoms. She denies any problems with her prior pregnancies. Patient has a history of migraine headaches in childhood. She also has a history of seizures as a young adult but says that these were "outgrown" and she is no longer taking any anticonvulsant medicines. - Related Data Allergies/Adverse Reactions: crab Allergy (Verified 11/02/19 17:34) quetiapine [From Seroquel] Allergy (Verified 11/02/19 17:34) Anaphylaxis Home Medications: vitamin Past Medical History - General Information source: Patient - Social History Smoking Status: Current Every Day Smoker Chew tobacco use (# tins/day): No Frequency of alcohol use: None Drug Abuse: None Family History: Reviewed & Not Pertinent Patient has suicidal ideation: No Patient has homicidal ideation: No Neurological Medical History: Reports: Hx Migraine, Hx Seizures - No seizures since 2010 Renal/ Medical History: Denies: Hx Peritoneal Dialysis Psychiatric Medical History: Reports: Hx Bipolar Disorder, Hx Depression Past Surgical History: Reports: Hx Cholecystectomy Review of Systems - Review of Systems Notes: Constitutional: Negative for fever. HENT: Negative for sore throat. Eyes: As per HPI. Cardiovascular: Negative for chest pain. Respiratory: Negative for shortness of breath. Gastrointestinal: Negative for abdominal pain, vomiting or diarrhea. Genitourinary: Negative for dysuria. Musculoskeletal: Negative for back pain. Skin: Negative for rash. Neurological: As per HPI. 10 point ROS negative except as marked above and in HPI. Physical Exam - Vital signs Vitals: Temp Pulse Resp BP Pulse Ox 98.6 F 84 16 148/84 H 97 11/02/19 16:52 11/02/19 16:52 11/02/19 16:52 11/02/19 16:52 11/02/19 16:52 - Notes Notes: GENERAL: Very obese female appearing somewhat older than stated age appearing in no acute distress. SKIN: Good turgor no rashes. HEAD: Normocephalic atraumatic. EYES: PERRLA. EOMI. Conjunctivae and sclerae clear. EARS: CANALS AND TMS CLEAR. NOSE: CLEAR. MOUTH: Moist mucosa. Good dentition. No stridor or edema. No drooling. NECK: Supple. No masses or thyromegaly. No adenopathy. Carotids 2+ without br uits. No JVD. BACK: Symmetrical without tenderness. CHEST: Respirations unlabored. Breath sounds clear and symmetrical. HEART: Regular rhythm. No murmur gallop or rub. ABDOMEN: Obese. Soft nontender without masses, organomegaly or rebound. Bowel sounds normally active. No bruits. GENITALIA: Deferred. EXTREMITIES: No edema. No calf tenderness. Cap refill less than 1.5 seconds. Dorsalis pedis and posterior tibial pulses 3+ and symmetrical. NEUROLOGICAL: GCS 15. Alert and oriented x3. Normal gait. Fluent speech. Cranial nerves II through XII intact. Sensorimotor and cerebellar normal. Normal tone. PSYCHIATRIC: Appropriate affect. Course - Re-evaluation Re-evalutation: 11/02/19 22:30 Urinalysis shows pyuria consistent with UTI. Remainder of her evaluation is relatively unremarkable here. I advised her to stop smoking. She may take Tylenol for headaches and follow-up with her OB and in the meantime we will culture her urine and I am going to empirically start her on cephalexin. - Vital Signs Vital signs: Temp Pulse Resp BP Pulse Ox 98.3 F 20 L 20 116/50 L 100 11/02/19 21:59 11/02/19 21:59 11/02/19 21:59 11/02/19 21:59 11/02/19 21:59 - Laboratory Result Diagrams: 11/02/19 18:07 11/02/19 18:07 Laboratory results interpreted by me: 11/02/19 11/02/19 11/02/19 18:07 18:07 18:07 Hgb 11.1 L Hct 34.7 L MCV 71 L MCH 22.8 L RDW 19.2 H Sodium 136.1 L AST 13 L Urine Protein 30 H Urine Ketones TRACE H Ur Leukocyte Esterase MODERATE H Discharge - Discharge Clinical Impression: UTI, IUP at 8 weeks EGA Headache Qualifiers: Headache type: unspecified Headache chronicity pattern: episodic headache Intractability: not intractable Qualified Code(s): R51 - Headache Condition: Stable Disposition: HOME, SELF-CARE Prescriptions: Cephalexin Monohydrate [Keflex 500 mg Capsule] 500 mg PO Q6H 5 Days capsule Forms: Smoking Cessation Education Referrals: HCELSEA WORKMAN PA-C [Primary Care Provider] - Follow up as needed
== END 2019-11-02 22:51 | disposition home or self-care (01) ==
LOC: ER 16:35
DX: O26.891 Other specified pregnancy related conditions, first trimester (principal); R51 Headache; H53.8 Other visual disturbances; R11.0 Nausea; O23.41 Unspecified infection of urinary tract in pregnancy, first trimester; O99.331 Smoking (tobacco) complicating pregnancy, first trimester; F17.200 Nicotine dependence, unspecified, uncomplicated; O99.211 Obesity complicating pregnancy, first trimester; O26.811 Pregnancy related exhaustion and fatigue, first trimester; Z3A.08 8 weeks gestation of pregnancy; Z86.69 Personal history of other diseases of the nervous system and sense organs; Z91.013 Allergy to seafood; Z87.892 Personal history of anaphylaxis; Z88.8 Allergy status to other drugs, medicaments and biological substances; Z79.899 Other long term (current) drug therapy
CPT/HCPCS: 36415; 80053; 81001; 83690; 85025; 99284

== ENCOUNTER 2019-12-25 15:57 | Emergency (ER) | payer MEDICAID ==
[2019-12-25 16:02] VITALS: BP 140/74
--- NOTE | 2019-12-25 16:35 | ER Document Report ---
ED Medical Screen (RME) - General Chief Complaint: Nausea/Vomiting Stated Complaint: NAUSEA/VOMITING/RUNNY NOSE Time Seen by Provider: 12/25/19 16:27 Primary Care Provider: CHELSEA WORKMAN PA-C [Primary Care Provider] - Follow up as needed Mode of Arrival: Ambulatory Information source: Patient Notes: 34-year-old female G5, P3 approximately 19 weeks presents emergency department with complaints of nausea vomiting diarrhea that started today. Reports diarrhea at least 4-5 times. She reports stuffy nose started last night. Reports she has had the nausea vomiting throughout her but it seems increased at this time. Patient reports she took antinausea medicine at 11:00. Declined medication now. I have greeted and performed a rapid initial assessment of this patient. A comprehensive ED assessment and evaluation of the patient, analysis of test results and completion of the medical decision making process will be conducted by additional ED providers. TRAVEL OUTSIDE OF THE [place] IN LAST 30 DAYS: No - Related Data Allergies/Adverse Reactions: crab Allergy (Verified 12/25/19 16:24) quetiapine [From Seroquel] Allergy (Verified 12/25/19 16:24) Anaphylaxis Past Medical History Neurological Medical History: Reports: Hx Migraine, Hx Seizures - No seizures since 2010 Renal/ Medical History: Denies: Hx Peritoneal Dialysis Psychiatric Medical History: Reports: Hx Bipolar Disorder, Hx Depression Past Surgical History: Reports: Hx Cholecystectomy Physical Exam - Vital signs Vitals: Temp Pulse Resp BP Pulse Ox 98.1 F 87 18 140/74 H 96 12/25/19 16:01 12/25/19 16:01 12/25/19 16:01 12/25/19 16:01 12/25/19 16:01 Course - Vital Signs Vital signs: Temp Pulse Resp BP Pulse Ox 98.1 F 87 18 140/74 H 96 12/25/19 16:01 12/25/19 16:01 12/25/19 16:01 12/25/19 16:01 12/25/19 16:01 Doctor's Discharge - Discharge Referrals: CHELSEA WORKMAN PA-C [Primary Care Provider] - Follow up as needed
[2019-12-25 17:42] LABS: ABSOLUTE EOSINOPHILS # (AUTO) 0.2 10^3/uL (0.0-0.6); ABSOLUTE LYMPHOCYTES (AUTO) 2.5 10^3/uL (0.5-4.7); ABSOLUTE MONOCYTES (AUTO) 0.4 10^3/uL (0.1-1.4); ABSOLUTE NEUT (AUTO) 6.3 10^3/uL (1.7-8.2); BASOPHILS % (AUTO) 0.2 % (0-2); EOSINOPHILS % (AUTO) 1.6 % (0-6); HEMATOCRIT 35.4 % (36.0-47.0); HEMOGLOBIN 11.8 g/dL (12.0-15.5); LYMPHOCYTES % (AUTO) 27.1 % (13-45); MEAN CORPUSCULAR HEMOGLOBIN 24.9 pg (27.0-33.4); MEAN CORPUSCULAR HGB CONC 33.3 g/dL (32.0-36.0); MEAN CORPUSCULAR VOLUME 75 fl (80-97); MONOCYTES % (AUTO) 4.2 % (3-13); PLATELET COUNT 223 10^3/uL (150-450); RED BLOOD COUNT 4.74 10^6/uL (3.72-5.28); RED CELL DISTRIBUTION WIDTH 19.9 % (11.5-14.0); SEGMENTED NEUTROPHILS % (AUTO) 66.9 % (42-78); TOTAL CELLS COUNTED % (AUTO) 100 %; WHITE BLOOD COUNT 9.3 10^3/uL (4.0-10.5)
[2019-12-25 18:03] LABS: A TYPE INFLUENZA AG NEGATIVE (NEGATIVE); B INFLUENZA AG NEGATIVE (NEGATIVE)
[2019-12-25 18:05] LABS: ALBUMIN 3.5 g/dL (3.5-5.0); ALKALINE PHOSPHATASE 85 U/L (38-126); ANION GAP 10 (5-19); ASPARTATE AMINO TRANSFERASE 13 U/L (14-36); BILIRUBIN,DIRECT 0.3 mg/dL (0.0-0.4); BILIRUBIN,TOTAL 0.3 mg/dL (0.2-1.3); BLOOD UREA NITROGEN 7 mg/dL (7-20); CALCIUM 9.5 mg/dL (8.4-10.2); CARBON DIOXIDE 23 mmol/L (22-30); CHLORIDE 103 mmol/L (98-107); GLUCOSE 77 mg/dL (75-110); POTASSIUM 4.2 mmol/L (3.6-5.0); TOTAL PROTEIN 7.3 g/dL (6.3-8.2)
[2019-12-25 18:12] LABS: APPEARANCE,URINE SLIGHTLY-CLOUDY; BILIRUBIN,URINE NEGATIVE (NEGATIVE); COLOR,URINE YELLOW; GLUCOSE, URINE NEGATIVE (NEGATIVE); KETONES,URINE 20 mg/dL (NEGATIVE); LEUKOCYTE ESTERASE,URINE MODERATE (NEGATIVE); NITRITE,URINE NEGATIVE (NEGATIVE); PROTEIN,URINE NEGATIVE (NEGATIVE); UROBILINOGEN,URINE NEGATIVE mg/dL (<2.0)
--- NOTE | 2019-12-25 19:39 | ER Document Report ---
ED GI/ - General Chief Complaint: Diarrhea Stated Complaint: NAUSEA/VOMITING/RUNNY NOSE Time Seen by Provider: 12/25/19 16:27 Primary Care Provider: [facility] [Provider Group] - Follow up in 3-5 days CHELSEA WORKMAN PA-C [Primary Care Provider] - Follow up in 3-5 days Mode of Arrival: Ambulatory Notes: Patient is a G5, P3, 34-year-old female who presents the emergency department with a chief complaint of nausea, vomiting, and diarrhea. Patient states that she is about 19 weeks . She states that her symptoms started today. Patient states that she is unable to keep anything down. She took antinausea medication, but cannot remember the medication she took. Patient has a history of bipolar disorder. States that she is able to feel movement. States she does follow-up with an PHYSIOTHERAPIST'S ASSISTANT. TRAVEL OUTSIDE OF THE [place] IN LAST 30 DAYS: No - Related Data Allergies/Adverse Reactions: crab Allergy (Verified 12/25/19 16:24) quetiapine [From Seroquel] Allergy (Verified 12/25/19 16:24) Anaphylaxis Past Medical History - General Information source: Patient - Social History Smoking Status: Former Smoker Family History: Reviewed & Not Pertinent Patient has suicidal ideation: No Patient has homicidal ideation: No Neurological Medical History: Reports: Hx Migraine, Hx Seizures - No seizures since 2010 Renal/ Medical History: Denies: Hx Peritoneal Dialysis Psychiatric Medical History: Reports: Hx Bipolar Disorder, Hx Depression Past Surgical History: Reports: Hx Cholecystectomy Review of Systems - Review of Systems Notes: REVIEW OF SYSTEMS: CONSTITUTIONAL : Denies recent illness. Denies recent unintentional weight loss. Denies fever, chills, or sweats. EENT: Denies eye, ear, throat, or mouth pain, discharge, or symptoms. Denies nasal or sinus congestion. CARDIOVASCULAR: Denies chest pain. RESPIRATORY: Denies shortness of breath, cough, congestion, difficulty breathing, or wheezing. GASTROINTESTINAL: See HPI. GENITOURINARY: Denies difficulty urinating, burning, blood in urine, urgency or frequency. FEMALE GENITOURINARY: See HPI. MUSCULOSKELETAL: Denies neck and back pain. Denies joint pain or swelling. SKIN: Denies rash, itchiness, or lesions HEMATOLOGIC : Denies easy bruising or bleeding. LYMPHATIC: Denies swollen, painful, enlarged glands. NEUROLOGICAL: Denies no numbness or tingling denies weakness. Denies headache. Denies altered mental status. Denies alteration in speech. PSYCHIATRIC: Denies stress, anxiety, alteration in sleep patterns, or depression. All other systems reviewed and negative. Physical Exam - Vital signs Vitals: Temp Pulse Resp BP Pulse Ox 98.1 F 87 18 140/74 H 96 12/25/19 16:01 12/25/19 16:01 12/25/19 16:12/25/19 16:12/25/19 16:01 - Notes Notes: PHYSICAL EXAMINATION: GENERAL: Appears well, obese, no acute distress. HEAD: Normocephalic, atraumatic. EYES: PERRL, conjunctiva normal, all extraocular movements intact, sclera nonicteric ENT: Moist mucous membranes. NECK: Supple, no noticeable swelling, redness, rash. Normal range of motion. LUNGS: Equal breath sounds bilaterally and clear to auscultation. No wheezes rales or rhonchi. CARDIOVASCULAR: S1-S2, regular rate, regular rhythm. Radial pulses 2+, normal. ABDOMEN: Normoactive bowel sounds. Soft, mildly tender, no guarding, no rebound tenderness, and no masses palpated. EXTREMITIES: Normal strength and range of motion, no pitting or edema. No cy anosis. NEUROLOGICAL: Moves all extremities upon command. Strength 5/5 in all extremities. PSYCH: Normal mood, normal affect. SKIN: Warm, dry. No rash, lesions, ulcerations noted. Normal skin turgor. Course - Re-evaluation Re-evalutation: 12/25/19 20:02 Hematology shows a an anemia with a hemoglobin of 11.8 and hematocrit of 35.4. This is most likely due to her . Chemistries are unremarkable. Patient has moderate amount of leukocytes in her urine. Influenza a and B are negative. Patient will be started on Keflex for her urinary tract infection. Advised her to follow-up with her PHYSIOTHERAPIST'S ASSISTANT. She is in agreement with this plan. Follow-up precautions were given. Verbal discharge instructions were given to the patient. They verbalized understanding. They are stable for discharge. - Vital Signs Vital signs: Temp Pulse Resp BP Pulse Ox 98.1 F 87 18 140/74 H 96 12/25/19 16:01 12/25/19 16:01 12/25/19 16:01 12/25/19 16:01 12/25/19 16:01 - Laboratory Result Diagrams: 12/25/19 17:09 12/25/19 17:09 Laboratory results interpreted by me: 12/25/19 12/25/19 12/25/19 17:09 17:09 17:09 Hgb 11.8 L Hct 35.4 L MCV 75 L MCH 24.9 L RDW 19.9 H Sodium 135.9 L Creatinine 0.39 L AST 13 L Urine Ketones 20 H Ur Leukocyte Esterase MODERATE H Discharge - Discharge Clinical Impression: Nausea and vomiting Qualifiers: Vomiting type: unspecified Vomiting Intractability: non-intractable Qualified Code(s): R11.2 - Nausea with vomiting, unspecified Diarrhea Qualifiers: Diarrhea type: unspecified type Qualified Code(s): R19.7 - Diarrhea, unspecified Condition: Stable Disposition: HOME, SELF-CARE Additional Instructions: You were seen today in the emergency department for nausea, vomiting, and diarrhea. You have a urinary tract infection. Please take all your medications as prescribed. Your urine has been sent for culture. If you need a different medication, you will be called by 1 of our nurses. Please follow-up with OB and with your primary care provider in regards to this visit. Prescriptions: Cephalexin [Keflex] 500 mg PO BID #14 capsule Referrals: CHELSEA WORKMAN PA-C [Primary Care Provider] - Follow up in 3-5 days [facility] [Provider Group] - Follow up in 3-5 days
== END 2019-12-25 20:19 | disposition home or self-care (01) ==
LOC: ER 15:57
DX: O21.9 Vomiting of pregnancy, unspecified (principal); O26.892 Other specified pregnancy related conditions, second trimester; R19.7 Diarrhea, unspecified; R09.89 Other specified symptoms and signs involving the circulatory and respiratory systems; Z3A.19 19 weeks gestation of pregnancy; Z79.899 Other long term (current) drug therapy; Z88.8 Allergy status to other drugs, medicaments and biological substances
CPT/HCPCS: 36415; 80053; 81001; 85025; 87804; 99284

== ENCOUNTER 2020-02-16 18:40 | Outpatient (CLI) | payer MEDICAID ==
[2020-02-16 19:31] LABS: APPEARANCE,URINE CLOUDY; BILIRUBIN,URINE NEGATIVE (NEGATIVE); COLOR,URINE AMBER; GLUCOSE, URINE NEGATIVE (NEGATIVE); KETONES,URINE TRACE mg/dL (NEGATIVE); LEUKOCYTE ESTERASE,URINE LARGE (NEGATIVE); NITRITE,URINE NEGATIVE (NEGATIVE); PROTEIN,URINE 30 mg/dL (NEGATIVE); URINE SPECIFIC GRAVITY 1.033
[2020-02-16 19:43] LABS: URINE AMPHETAMINES SCREEN NEGATIVE; URINE BARBITURATES SCREEN NEGATIVE; URINE BENZODIAZEPINES SCREEN NEGATIVE; URINE COCAINE SCREEN NEGATIVE; URINE MARIJUANA (THC) SCREEN NEGATIVE; URINE METHADONE SCREEN NEGATIVE; URINE PHENCYCLIDINE SCREEN NEGATIVE
[2020-02-16] MEDS ORDERED: LIDOCAINE 1% INJ-PF (10 MG/ML) 30 ML SDV INJ ONE (19:44)
[2020-02-16] MEDS ORDERED: CEFTRIAXONE INJ 1000 MG VIAL IM ONE (19:44)
[2020-02-16] MEDS ORDERED: CEFTRIAXONE INJ 1000 MG VIAL ONE (19:48)
[2020-02-16] MEDS ORDERED: LIDOCAINE 1% INJ-PF (10 MG/ML) 30 ML SDV ONE (19:48)
== END 2020-02-16 19:57 | disposition home or self-care (01) ==
LOC: LC 18:40
PROVIDERS: ATTEND Obstetrics & Gynecology
DX: O47.02 False labor before 37 completed weeks of gestation, second trimester (principal); Z3A.26 26 weeks gestation of pregnancy
CPT/HCPCS: 59899; 87086; 81001; 80307; J3490; J0696

== ENCOUNTER 2020-04-18 23:38 | Outpatient (CLI) | payer MEDICAID ==
[2020-04-19 00:08] LABS: APPEARANCE,URINE CLOUDY; BILIRUBIN,URINE NEGATIVE (NEGATIVE); COLOR,URINE AMBER; GLUCOSE, URINE NEGATIVE (NEGATIVE); KETONES,URINE TRACE mg/dL (NEGATIVE); LEUKOCYTE ESTERASE,URINE MODERATE (NEGATIVE); NITRITE,URINE NEGATIVE (NEGATIVE); PROTEIN,URINE 100 mg/dL (NEGATIVE); URINE SPECIFIC GRAVITY 1.032
[2020-04-19] MEDS ORDERED: RINGERS SOLUTION,LACTATED 1,000 ML IV PRN (00:18)
[2020-04-19] MEDS ORDERED: CEFTRIAXONE INJ 1000 MG VIAL ONE (00:18)
[2020-04-19] MEDS ORDERED: CEFTRIAXONE 1 GM/D5W RTU 1 GM/50 ML RTUPB IV PRN (00:19)
[2020-04-19 00:32] LABS: URINE AMPHETAMINES SCREEN NEGATIVE; URINE BARBITURATES SCREEN NEGATIVE; URINE BENZODIAZEPINES SCREEN NEGATIVE; URINE COCAINE SCREEN NEGATIVE; URINE MARIJUANA (THC) SCREEN NEGATIVE; URINE METHADONE SCREEN NEGATIVE; URINE PHENCYCLIDINE SCREEN NEGATIVE
[2020-04-19 02:19] LABS: APPEARANCE,URINE SLIGHTLY-CLOUDY; BILIRUBIN,URINE NEGATIVE (NEGATIVE); COLOR,URINE YELLOW; GLUCOSE, URINE NEGATIVE (NEGATIVE); KETONES,URINE NEGATIVE (NEGATIVE); LEUKOCYTE ESTERASE,URINE MODERATE (NEGATIVE); NITRITE,URINE NEGATIVE (NEGATIVE); PROTEIN,URINE 30 mg/dL (NEGATIVE); URINE SPECIFIC GRAVITY 1.028; UROBILINOGEN,URINE NEGATIVE mg/dL (<2.0)
--- NOTE | 2020-04-19 02:31 | Non Stress Test Report ---
Non Stress Test Datetime Report Generated by CPN: 04/19/2020 02:30 DEMOGRAPHIC EGA NST: 35.4 INDICATION Indication for Study (NST) Other: LC- back pain MONITORING Monitor Explained: Monitor Explained; Test Explained; Patient Verbalized Understanding Time on Monitor: 04/18/2020 23:56 Time off Monitor: 04/19/2020 02:00 NST Duration: 124 NST INTERVENTIONS NST Interventions: IV Fluids; Reposition Patient Physician Notified NST: Dr. Lew BABY A: [id number] BABY A Movement : Present Contraction Frequency : none FHR Baseline : 135 Accelerations : 15X15 Decelerations : None Variability : Moderate 6-25bpm NST Review: Meets Criteria for Reactive NST NST Review and Verified By : WALDEMAR Gray NST Results: Reactive NST REPORT Report Trigger: Send Report
== END 2020-04-19 02:36 | disposition home or self-care (01) ==
LOC: LC 23:38
PROVIDERS: ATTEND Student in an Organized Health Care Education/Training Program
DX: O23.43 Unspecified infection of urinary tract in pregnancy, third trimester (principal); M54.9 Dorsalgia, unspecified; Z3A.35 35 weeks gestation of pregnancy
CPT/HCPCS: 59025; 87086; 81005; 81001; 80307; J0696

== ENCOUNTER 2020-05-02 22:33 | Outpatient (CLI) | payer MEDICAID ==
[2020-05-02 23:00] LABS: APPEARANCE,URINE CLOUDY; BILIRUBIN,URINE NEGATIVE (NEGATIVE); COLOR,URINE YELLOW; GLUCOSE, URINE NEGATIVE (NEGATIVE); KETONES,URINE TRACE mg/dL (NEGATIVE); LEUKOCYTE ESTERASE,URINE LARGE (NEGATIVE); NITRITE,URINE NEGATIVE (NEGATIVE); PROTEIN,URINE 100 mg/dL (NEGATIVE); URINE SPECIFIC GRAVITY 1.034
[2020-05-02 23:29] LABS: URINE AMPHETAMINES SCREEN NEGATIVE; URINE BARBITURATES SCREEN NEGATIVE; URINE BENZODIAZEPINES SCREEN NEGATIVE; URINE COCAINE SCREEN NEGATIVE; URINE MARIJUANA (THC) SCREEN NEGATIVE; URINE METHADONE SCREEN NEGATIVE; URINE PHENCYCLIDINE SCREEN NEGATIVE
--- NOTE | 2020-05-02 23:56 | Non Stress Test Report ---
Non Stress Test Datetime Report Generated by CPN: 05/02/2020 23:56 DEMOGRAPHIC EGA NST: 37.4 INDICATION Indication for Study (NST) Other: LC- suspected SROM MONITORING Monitor Explained: Monitor Explained; Test Explained; Patient Verbalized Understanding Time on Monitor: 05/02/2020 22:47 Time off Monitor: 05/02/2020 23:46 NST Duration: 59 NST INTERVENTIONS NST Interventions: PO Hydration Physician Notified NST: Dr. Hood BABY A: [id number] BABY A Movement : Present Contraction Frequency : x1 FHR Baseline : 130 Accelerations : 15X15 Decelerations : None Variability : Moderate 6-25bpm NST Review: Meets Criteria for Reactive NST NST Review and Verified By : WALDEMAR Gray NST Results: Reactive NST REPORT Report Trigger: Send Report
== END 2020-05-02 23:52 | disposition home or self-care (01) ==
LOC: LC 22:33
PROVIDERS: ATTEND Obstetrics & Gynecology Gynecology
DX: Z03.71 Encounter for suspected problem with amniotic cavity and membrane ruled out (principal); Z3A.37 37 weeks gestation of pregnancy
CPT/HCPCS: 59025; 80307; 81005; 84112